=== PATIENT | male | born 1970 | race Caucasian/White ===

== ENCOUNTER → 2019-04-08 | Outpatient (CLI) | payer BC ==
--- NOTE | 2019-04-09 18:29 | REP ---
Clinical: Urinary frequency. Technique: Real time grimes scale and color evaluation using curved array transducer. Findings: The bladder is essentially normal in appearance and without wall thickening or mass lesion. Ureteral jets were identified during examination. Prevoid bladder measures 10.3 x 8.4 x 7.0 cm (395 ml). Postvoid bladder measures 2.5 x 2.4 x 1.9 cm (7 ml). Postvoid residual equals 2%. Prostate gland measures 3.9 x 3.5 x 2.2 cm (16 ml). Impression: Essentially normal bladder ultrasound. Electronically Signed by Jere Ordonez MD 04/09/2019 06:20 P
== END ==
LOC: M RAD 11:48
PROVIDERS: ATTEND Family Medicine
DX: R35.0 Frequency of micturition (principal)

== ENCOUNTER 2019-08-01 09:19 | Day surgery (SDC) | payer BC ==
[~2019-08-01] VITALS: Ht 175.3 cm; Wt 105.2 kg
[~2019-08-01 09:19] MED LIST: NS 1,000 ML IV ONE
[2019-08-01] MEDS ORDERED: PROPOFOL 200 MG/20 ML VIAL As Ordered ONE ×2 (11:05→11:42)
--- NOTE | 2019-08-01 11:23 | ROOR ---
Patient Name: Trevor Mckeon Procedure Date: 08/01/2019 11:03 AM Date of : 1970 Age: 49 Room: [facility] Gender: Male Note Status: Finalized Procedure: Colonoscopy Indications: Screening for colorectal malignant neoplasm Providers: Michael Monterroso Jr, MD Referring MD: Robinson Kaiser MD Requesting Provider: Medicines: Propofol per Anesthesia Complications: No immediate complications. Procedure: Pre-Anesthesia Assessment: - Prior to the procedure, a History and Physical was performed, and patient medications and allergies were reviewed. The patient is competent. The risks and benefits of the procedure and the sedation options and risks were discussed with the patient. All questions were answered and informed consent was obtained. Patient identification and proposed procedure were verified by the physician and the nurse in the pre-procedure area and in the procedure room. Mental Status Examination: alert and oriented. Airway Examination: normal oropharyngeal airway and neck mobility. Respiratory Examination: clear to auscultation. CV Examination: normal. ASA Grade Assessment: II - A patient with mild systemic disease. After reviewing the risks and benefits, the patient was deemed in satisfactory condition to undergo the procedure. The anesthesia plan was to use moderate sedation / analgesia (conscious sedation). Immediately prior to administration of medications, the patient was re-assessed for adequacy to receive sedatives. The heart rate, respiratory rate, oxygen saturations, blood pressure, adequacy of pulmonary ventilation, and response to care were monitored throughout the procedure. The physical status of the patient was re-assessed after the procedure. The Colonoscope was introduced through the anus and advanced to the cecum, identified by appendiceal orifice and ileocecal valve. The colonoscopy was performed without difficulty. The patient tolerated the procedure well. The quality of the bowel preparation was adequate. Findings: The rectum, recto-sigmoid colon, sigmoid colon, descending colon, transverse colon, ascending colon, cecum and ileocecal valve appeared normal. Impression: - The rectum, recto-sigmoid colon, sigmoid colon, descending colon, transverse colon, ascending colon, cecum and ileocecal valve are normal. - No specimens collected. Recommendation: - Discharge patient to home (ambulatory). - Repeat colonoscopy in 10 years for screening purposes. Michael Monterroso MD Michael Monterroso Jr, MD 08/01/2019 11:22:50 AM Electronically signed by Michael Monterroso Jr, MD Number of Addenda: 0 Note Initiated On: 08/01/2019 11:03 AM Estimated Blood Loss: Estimated blood loss: none.
[2019-08-01 11:45] VITALS: BP 127/79
== END 2019-08-01 11:53 | disposition home or self-care (01) ==
LOC: M OPP 09:19
PROVIDERS: ATTEND Surgery
DX: Z12.11 Encounter for screening for malignant neoplasm of colon (principal); Z88.0 Allergy status to penicillin; Z88.1 Allergy status to other antibiotic agents

== ENCOUNTER 2021-10-18 18:42 | Emergency (ER) | payer BC ==
[2021-10-18] MEDS ORDERED: NS 1,000 ML IV ONE (19:50)
[2021-10-18] MEDS ORDERED: BOOSTRIX/ADACEL VACCINE (DIPHTH/PERTUSS/ACELL/TETANUS) 0.5ML SYR IM ONE (19:55)
[2021-10-18 20:32] LABS: BASO % 0.1 % (0.0-1.0); EOS # 0.1 10^3/uL (0.0-0.5); EOS % 1.2 % (0.0-3.0); HEMATOCRIT 47.9 % (42.0-52.0); HEMOGLOBIN 16.6 g/dl (13.5-17.5); LYMPH # 0.6 10^3/uL (1.5-5.0); LYMPH % 8.4 % (24.0-44.0); MEAN CORPUSCULAR HEMOGLOBIN 31.3 pg (27.0-33.0); MEAN CORPUSCULAR HGB CONC 34.7 g/dl (32.0-36.5); MEAN CORPUSCULAR VOLUME 90.2 fl (80.0-96.0); MONO # 0.4 10^3/uL (0.0-0.8); MONO % 5.9 % (2.0-8.0); NEUTROPHILS # 6.1 10^3/uL (1.5-8.5); NEUTROPHILS % 84.1 % (36.0-66.0); PLATELET COUNT, AUTOMATED 146 10^3/uL (150-450); RED BLOOD COUNT 5.31 10^6/uL (4.30-6.10); WHITE BLOOD COUNT 7.2 10^3/uL (4.0-10.0)
[2021-10-18 20:36] VITALS: BP 147/80
[2021-10-18 20:43] LABS: ALBUMIN 3.7 GM/DL (3.2-5.2); ALT/SGPT 36 U/L (12-78); BLOOD UREA NITROGEN 17 MG/DL (7-18); CALCIUM LEVEL 9.1 MG/DL (8.5-10.1); CARBON DIOXIDE LEVEL 28 MEQ/L (21-32); CHLORIDE LEVEL 109 MEQ/L (98-107); CK-MB VALUE MASS < 1.0 NG/ML (<3.6); CPK CREATINE PHOSPHOKINASE 73 U/L (39-308); CREATININE FOR GFR 0.97 MG/DL (0.70-1.30); GLOMERULAR FILTRATION RATE > 60.0 (>56); GLUCOSE, FASTING 108 MG/DL (70-100); MAGNESIUM LEVEL 1.9 MG/DL (1.8-2.4); MB/CK RELATIVE INDEX 1.37 (< OR =4); POTASSIUM SERUM 3.6 MEQ/L (3.5-5.1); SODIUM LEVEL 141 MEQ/L (136-145); TOTAL PROTEIN 6.6 GM/DL (6.4-8.2)
[2021-10-18] MEDS ORDERED: DERMABOND TOPICAL SKIN ADHESIVE TOP ONE (21:15)
== END 2021-10-18 21:51 | disposition home or self-care (01) ==
LOC: M ED 18:42
DX: R55 Syncope and collapse (principal); E86.0 Dehydration; S01.81XA Laceration without foreign body of other part of head, initial encounter; W18.39XA Other fall on same level, initial encounter; Y92.89 Other specified places as the place of occurrence of the external cause; Z88.0 Allergy status to penicillin; Z88.8 Allergy status to other drugs, medicaments and biological substances